=== PATIENT | male | born 1975 | race Caucasian/White ===

== ENCOUNTER 2023-12-19 04:32 | Inpatient (IN) ==
--- NOTE | 2023-12-19 04:54 | Emergency Department Note ---
History of Present Illness General Chief complaint: Abdominal Pain Stated complaint: HERNIA RUPTURE Time Seen by Provider: 12/19/23 04:45 History of Present Illness Maximum Pain Intensity: 10 This is a 48-year-old male presenting to the emergency department for evaluation of periumbilical abdominal pain. Patient states that he was moving a ladder of his truck, when he felt pain to the left lower side of his umbilicus. Patient believes that he may have a hernia in this area that has caused him difficulty in the past, and is worried it may be worse. He also has a history of kidney stones and is concerned it could be that as well. Patient's discomfort is a 10/10. He feels like he has been able to use the bathroom as normal. Home Medications Medication Instructions Recorded Confirmed Type No Known Home Medications 12/19/23 12/19/23 History Allergies Allergy/AdvReac Type Severity Reaction Status Date / Time No Known Allergies Allergy Verified 12/19/23 08:32 Past Med/Surg History Problem List (Updated 12/19/23 @ 21:25 by Kirit Peterson PA-C) Left ureteral stone (Acute) Medical History No chronic diseases present Surgical History No significant past surgical history Social History Smoking Status: Current every day smoker Tobacco Type: Cigarettes and Smokeless Tobacco (Dip or Chew) Second Hand Exposure: No; Do You Dip or Chew Tobacco: Yes; Hx Alcohol Use: Yes Hx Substance Use: No Preferred Language: Serbian Addictions Recovery Specialist Required: No Beliefs That Will Affect Care: None Current Living Situation: Alone Feels Safe at Home: Yes Assistive Devices: CPAP and Glasses Review of Systems A total of 10 systems reviewed and were otherwise negative Physical Exam Vital Signs Vital Signs - 24 hr 12/19/23 04:34 12/19/23 06:32 12/19/23 08:20 Temperature 36.5 C Temperature Source Temporal Artery Scan Pulse Rate 69 Pulse Rate [Apical] 58 L 89 Pulse Rhythm [Apical] Regular Pulse Strength [Apical] Normal Respiratory Rate 18 19 22 Respiratory Effort / Characteristics Non-Labored Spontaneous Non-Labored Spontaneous Respiratory Depth Normal Normal Respiratory Pattern Regular Blood Pressure 167/90 H Blood Pressure [Right Arm] 150/79 H 137/82 Blood Pressure Mean 115 Blood Pressure Mean [Right Arm] 102 100 Blood Pressure Position [Right Arm] Sitting Pulse Oximetry 96 100 99 Oxygen Delivery Method Room Air Room Air Room Air Sepsis Recent Fever Within 48 Hours No Sepsis New/Unexplained Change in Mental Status No Sepsis Action Taken by Nursing No Action Required VITALS: Vitals are noted on the nurse's note and reviewed by myself. Vital signs stable. GENERAL: Well-developed, well-nourished, white male, who is in no acute distress and resting comfortably. Patient is cooperative with the examination. HEAD: Normocephalic atraumatic. NECK: Supple without nuchal rigidity. No lymphadenopathy. No thyromegaly. Cervical spine is nontender. HEART: Regular rate and rhythm without murmurs gallops or rubs. LUNGS: Clear to auscultation bilaterally without wheezes, rales or rhonchi. No retractions or accessory muscle use. ABDOMEN: Positive normal bowel sounds x 4. Soft, with mild tenderness to the left side abdomen. No rebound or guarding. No CVA tenderness. MUSCULOSKELETAL: No muscle atrophy, erythema, or edema noted. Full range of motion in all extremities. Course Administered Medications Sodium Chloride (Nss) 1,000 mls @ 100 mls/hr IV .Q10H [facility] Stop: 01/18/24 08:29 Last Admin: 12/19/23 19:54 Dose: 100 mls/hr Documented By: Infusion: 12/19/23 18:35 Dose: Infused Documented By: Admin: 12/19/23 08:35 Dose: 100 mls/hr Documented By: NAM Morphine Sulfate (Morphine Sulfate 4 Mg/Ml 1 Ml Carp\Vial) 4 mg IV Q30M PRN PRN Reason: Pain Stop: 01/02/24 04:48 Last Admin: 12/19/23 05:00 Dose: 4 mg Documented By: ROD Tamsulosin HCl (Tamsulosin Hcl 0.4 Mg Cap) 0.4 mg PO QAM [facility] Stop: 01/18/24 08:59 Last Admin: 12/19/23 08:38 Dose: 0.4 mg Documented By: NAM Discontinued Medications Hydromorphone HCl (Hydromorphone Inj 0.5 Mg/0.5 Ml Syr) 0.5 mg IV NOW STA Stop: 12/19/23 05:33 Last Admin: 12/19/23 05:35 Dose: 0.5 mg Documented By: ROD Hydromorphone HCl (Hydromorphone Inj 0.5 Mg/0.5 Ml Syr) 0.5 mg IV NOW STA Stop: 12/19/23 08:08 Last Admin: 12/19/23 08:26 Dose: 0.5 mg Documented By: NAM Sodium Chloride (Nss) 1,000 mls @ 999 mls/hr IV .Q1H1M [facility] Stop: 12/19/23 06:00 Last Infusion: 12/19/23 06:06 Dose: Infused Documented By: Admin: 12/19/23 05:01 Dose: 999 mls/hr Documented By: ROD Promethazine HCl (Phenergan) 12.5 mg in 50.5 mls @ 202 mls/hr IV NOW STA Stop: 12/19/23 06:23 Last Infusion: 12/19/23 06:30 Dose: Infused Documented By: Admin: 12/19/23 06:14 Dose: 202 mls/hr Documented By: ROD Sodium Chloride (Nss) 1,000 mls @ 999 mls/hr IV .Q1H1M [facility]EL[facility] Stop: 12/19/23 07:15 Last Infusion: 12/19/23 08:31 Dose: Infused Documented By: Admin: 12/19/23 06:57 Dose: 999 mls/hr Documented By: ROD Ioversol (Optiray 320 100ml) 93 ml IV ONCE ONE Stop: 12/19/23 06:08 Last Admin: 12/19/23 06:07 Dose: 93 ml Documented By: VIKTOR Ketorolac Tromethamine (Ketorolac 30 Mg/Ml Vial) 30 mg IV NOW STA Stop: 12/19/23 06:12 Last Admin: 12/19/23 06:14 Dose: 30 mg Documented By: ROD Ondansetron HCl (Ondansetron Inj 2 Mg/Ml 2 Ml Vial) 4 mg IV NOW STA Stop: 12/19/23 04:50 Last Admin: 12/19/23 05:01 Dose: 4 mg Documented By: ROD Medical Decision Making Differential Diagnosis Differential diagnosis: Etiologies such as biliary colic, cholecystitis, hepatitis, pancreatitis, cardiac disease, pancreatitis, gastritis, peptic ulcer disease, appendicitis, cystitis, diverticulitis, mesenteric ischemia, inflammatory bowel disease, ileus, bowel obstruction, testicular/adnexal torsion, aortic pathology, shingles, as well as others were considered Laboratory Data 12/19/23 05:05 12/19/23 05:05 Lab Results 12/19/23 12/19/23 Range/Units 05:05 06:08 WBC 7.55 (4.8-10.8) K/ul RBC 5.05 (4.70-6.10) M/uL Hgb 15.5 (14.0-18.0) g/dl Hct 45.3 (42.0-52.0) % MCV 89.7 (80.0-100.0) fL MCH 30.7 (25.0-34.0) pg MCHC 34.2 (32.0-36.0) g/dL RDW Std Deviation 41.9 (36.4-46.3) fL RDW Coeff of Stephane 12.8 (11.5-14.5) % Plt Count 355 (130-400) K/uL MPV 8.9 L (9.4-12.4) fL Immature Gran % (Auto) 0.4 % Neut % (Auto) 71.6 % Lymph % (Auto) 17.5 % [place] % (Auto) 8.9 % Eos % (Auto) 1.2 % Baso % (Auto) 0.4 % Neut # (Auto) 5.41 (1.40-6.50) K/uL Lymph # (Auto) 1.32 (1.20-3.40) K/uL [place] # (Auto) 0.67 H (0.11-0.59) K/uL Eos # (Auto) 0.09 (0.00-0.50) K/uL Baso # (Auto) 0.03 (0.00-0.20) K/uL Immature Gran # (Auto) 0.03 (0.01-0.20) K/uL Sodium 137 (136-145) mmol/L Potassium 4.1 (3.5-5.1) mmol/L Chloride 104 (98-107) mmol/L Carbon Dioxide 25 (21-32) mmol/L Anion Gap 8 (3-11) BUN 14 (6-23) mg/dl Creatinine 1.13 (0.6-1.4) mg/dl Est Cr Clr Drug Dosing 85.1 ml/min Est GFR ( Amer) 88.6 ml/min Est GFR (Non-Af Amer) 76.4 ml/min BUN/Creatinine Ratio 12.4 (10-20) Glucose 120 H (70-99(Fasting)) mg/dl Calcium 9.5 (8.6-10.3) mg/dl Total Bilirubin 0.6 (0.2-1.0) mg/dl AST 12 L (13-39) U/L ALT 11 (7-52) U/L Alkaline Phosphatase 40 (34-104) U/L Total Protein 7.5 (6.0-8.3) gm/dl Albumin 4.4 (3.4-5.0) gm/dl Globulin 3.1 (2.5-4.0) gm/dl Albumin/Globulin Ratio 1.4 (0.9-2) Lipase 24 (11-82) U/L Urine Color Yellow Urine Appearance Clear (Clear) Urine pH 7.0 (4.5-7.5) Ur Specific [place] 1.038 H (1.000-1.030) Urine Protein Trace H (Negative) Urine Glucose (UA) Negative (Negative) Urine Ketones Trace H (Negative) Urine Blood 2+ H (Negative) Urine Nitrite Negative (Negative) Urine Bilirubin Negative (Negative) Urine Urobilinogen Negative (Negative) Ur Leukocyte Esterase Trace H (Negative) Urine WBC (Auto) 0-5 (0-5) /hpf Urine RBC (Auto) 11-20 H (0-2) /hpf U Hyaline Cast (Auto) 0-2 (0-2) /lpf U Epithel Cells (Auto) 0-2 (0-2) /hpf Urine Bacteria (Auto) None Seen (None Seen) MDM Narrative Physical exam and history were performed. Nursing notes, EMR, and Medication List were personally reviewed. No social concerns were identified as barriers to patients care. Patient appears to have abdominal pain on the left side bringing him to the ER. He is concerned about a hernia that he knows this. IV access was established and labs were obtained. Patient was hydrated normal saline and given IV morphine and IV Zofran. He was sent to CT scan for imaging. Patient's blood work is as above and was reviewed. He does not have a significantly elevated white blood cell count, gross anemia, bandemia, or significant electrolyte imbalance. Transaminases are not diagnostic. Urine with blood but no evidence of infection. Patient continued to have significant discomfort with vomiting despite IV treatment. I did provide him IV Dilaudid and IV Phenergan. He is also given IV Toradol. CT scan was reviewed by myself and likely shows a distal ureteral calculi with hydronephrosis. Official radiology read is pending. Patient remained in stable condition until the time of shift change. Case was discussed with my colleague, Edy Mejia PA-C, who will assume care pending official radiology read. Please see Mr. Mejia's dictation for further patient course, plan, and disposition. The chart was completed utilizing [employer] Voice Recognition Software. Grammatical errors, random word insertions, pronoun errors, and incomplete sentences are an occasional consequence of this system due to software limitations, ambient noise, and hardware issues. Any formal questions or concerns about the content, text, or information contained within the body of this dictation should be directly addressed to the provider for clarification. Impression & Plan Left ureteral stone Discharge Plan Visit Data Chief Complaint: Abdominal Pain Stated Complaint: HERNIA RUPTURE ED Provider: Stefano Wells ED Midlevel Provider: Edy Mejia Discharge Problem: Left ureteral stone Patient Disposition: Admitted As Inpatient Discharge Instructions Interventions: ED Discharge Assessment Last Done: 12/19/23 11:55
[2023-12-19] MEDS: MoRPHine SULFATE 4 MG/ML 1 ML CARP\\VIAL IV PRN (05:00)
[2023-12-19] MEDS: ONDANSETRON INJ 2 MG/ML 2 ML VIAL IV STA (05:01)
[2023-12-19] MEDS: SODIUM CHLORIDE 0.9% 1,000 ML IV SCH ×3 (05:01→08:35)
[2023-12-19 05:22] LABS: Basophils # (auto) 0.03 K/uL (0.00-0.20); Basophils % (auto) 0.4 %; Eosinophils # (auto) 0.09 K/uL (0.00-0.50); Eosinophils % (auto) 1.2 %; Hematocrit (blood only) 45.3 % (42.0-52.0); Hemoglobin 15.5 g/dl (14.0-18.0); Immature Granulocytes # (auto) 0.03 K/uL (0.01-0.20); Immature Granulocytes % (auto) 0.4 %; Lymphocytes # (auto) 1.32 K/uL (1.20-3.40); Lymphocytes % (auto) 17.5 %; Mean Corpuscular Hemoglobin 30.7 pg (25.0-34.0); Mean Corpuscular Hgb Conc 34.2 g/dL (32.0-36.0); Mean Corpuscular Volume 89.7 fL (80.0-100.0); Mean Platelet Volume 8.9 fL (9.4-12.4); Monocytes # (auto) 0.67 K/uL (0.11-0.59); Monocytes % (auto) 8.9 %; Neutrophils # (auto) 5.41 K/uL (1.40-6.50); Neutrophils % (auto) 71.6 %; Platelet Count 355 K/uL (130-400); RDW Coefficient of Variation 12.8 % (11.5-14.5); RDW Standard Deviation 41.9 fL (36.4-46.3); Red Blood Count 5.05 M/uL (4.70-6.10); White Blood Count 7.55 K/ul (4.8-10.8)
[2023-12-19] MEDS: HYDROmorphone INJ 0.5 MG/0.5 ML SYR IV STA ×2 (05:35→08:26)
[2023-12-19 05:37] LABS: Albumin Globulin Ratio 1.4 (0.9-2); Albumin Level 4.4 gm/dl (3.4-5.0); BUN Creatinine Ratio 12.4 (10-20); Bilirubin,Total 0.6 mg/dl (0.2-1.0); Calcium 9.5 mg/dl (8.6-10.3); Creatinine Clr Calc Pharmacy 85.1 ml/min; Est GFR (African American) 88.6 ml/min; Est GFR (Non-African American) 76.4 ml/min; Globulin 3.1 gm/dl (2.5-4.0); Potassium 4.1 mmol/L (3.5-5.1); Total Protein 7.5 gm/dl (6.0-8.3)
[2023-12-19] MEDS: OPTIRAY 320 100ml IV ONE (06:07)
[2023-12-19] MEDS: KETOROLAC 30 MG/ML VIAL IV STA (06:14)
[2023-12-19] MEDS: PROMETHAZINE 12.5 MG/50.5 ML BAG IV STA (06:14)
[2023-12-19 06:33] LABS: Appearance Urine Clear (Clear); Bacteria Urine Automated None Seen (None Seen); Bilirubin Urine Negative (Negative); Blood Urine 2+ (Negative); Cast Urine Automated 0-2 /lpf (0-2); Color Urine Yellow; Epithelial Cell Urine Auto 0-2 /hpf (0-2); Glucose Urine UA Negative (Negative); Ketones Urine Trace (Negative); Leukocyte Esterase Urine Trace (Negative); Nitrite Urine Negative (Negative); Protein Urine Trace (Negative); Specific Gravity Urine 1.038 (1.000-1.030); Urobilinogen Urine Negative (Negative); WBC Urine Automated 0-5 /hpf (0-5)
--- NOTE | 2023-12-19 07:26 | CT Scan Report ---
CT OF THE ABDOMEN AND PELVIS WITH CONTRAST CLINICAL HISTORY: periumbilical pain. ?Hernia vs other COMPARISON STUDY: CT of the abdomen and pelvis October 31, 2020. TECHNIQUE: Following IV administration of 93 mL of Optiray, axial images of the abdomen and pelvis we re obtained from the lung bases to the proximal femurs. Images were reviewed in the axial, sagittal, and coronal planes. IV contrast was administered without complication. Automated exposure control wa s utilized for the study. A dose lowering technique was utilized adhering to the principles of ALARA . CT DOSE: 1411.31 mGy.cm FINDINGS: A 4 mm distal left ureteral calculus results in mild left hydroureteronephrosis with delaye d nephrogram. There is trace perinephric fluid. There is no right hydronephrosis. There is a 2 mm lef t renal calculus. The liver, spleen, adrenal glands and pancreas are unremarkable with the exception of small hepatic cysts. The appendix is normal. There is no evidence for a bowel obstruction. Colonic diverticulosis without evidence for acute diverticulitis. There are no fluid collections. Major vasc ulature is patent. IMPRESSION: 1. 4 mm distal left ureteral calculus results in mild hydroureteronephrosis with delayed nephrogram. 2. 2 mm left renal calculus. ACT 112: Negative or not required by law. Electronically signed by: Joni Campos M.D. 12/19/2023 7:24 AM
[2023-12-19] MEDS ORDERED: MAGNESIUM HYDROXIDE SUSP 30 ML UDC PO PRN (08:29)
[2023-12-19] MEDS ORDERED: ACETAMINOPHEN 325 MG TAB PO PRN (08:29)
[2023-12-19] MEDS ORDERED: POLYETHYLENE (MIRALAX) 17 GM PACK PO PRN (08:29)
[2023-12-19] MEDS ORDERED: ONDANSETRON INJ 2 MG/ML 2 ML VIAL IV PRN (08:29)
[2023-12-19] MEDS ORDERED: HYDROmorphone INJ 0.5 MG/0.5 ML SYR IV PRN (08:29)
[2023-12-19] MEDS ORDERED: MoRPHine SULFATE 2 MG/ML CARP IV PRN (08:29)
[2023-12-19] MEDS ORDERED: ALUMINUM/MAGNESIUM SUSP 30 ML UDC PO PRN (08:29)
[2023-12-19] MEDS: TAMSULOSIN HCL 0.4 MG CAP PO SCH (08:38)
--- NOTE | 2023-12-19 09:15 | Emergency Department Note ---
ED Visit Note Patient case signed out to me on 12/19/2023 at 0700 hrs. at shift change from Kirit Peterson PA-C. This was pending CT scan report being read by radiology. Please refer to documentation regarding the patient's stay up until point of signout. The patient is here with left lower quadrant region pain. CT scan did result and shows an obstructing distal left ureteral stone. Patient has had several antiemetics as well as analgesics here with continuation of pain. I discussed options with the patient. We will proceed with inpatient management. Case discussed with the hospitalist service. Please refer to further documentation regarding his stay. .CT OF THE ABDOMEN AND PELVIS WITH CONTRAST CLINICAL HISTORY: periumbilical pain. ?Hernia vs other COMPARISON STUDY: CT of the abdomen and pelvis October 31, 2020. TECHNIQUE: Following IV administration of 93 mL of Optiray, axial images of the abdomen and pelvis were obtained from the lung bases to the proximal femurs. Images were reviewed in the axial, sagittal, and coronal planes. IV contrast was administered without complication. Automated exposure control was utilized for the study. A dose lowering technique was utilized adhering to the principles of ALARA. CT DOSE: 1411.31 mGy.cm FINDINGS: A 4 mm distal left ureteral calculus results in mild left hydroureteronephrosis with delayed nephrogram. There is trace perinephric fluid. There is no right hydronephrosis. There is a 2 mm left renal calculus. The liver, spleen, adrenal glands and pancreas are unremarkable with the exception of small hepatic cysts. The appendix is normal. There is no evidence for a bowel obstruction. Colonic diverticulosis without evidence for acute diverticulitis. There are no fluid collections. Major vasculature is patent. IMPRESSION: 1. 4 mm distal left ureteral calculus results in mild hydroureteronephrosis with delayed nephrogram. 2. 2 mm left renal calculus.
--- NOTE | 2023-12-19 10:36 | Urology Consultation ---
Date of Consultation December 19, 2023 Assessment & Plan (1) Left ureteral stone: We reviewed the stone in the left ureter. It is small enough that I think he has a good chance of passing it spontaneously. We discussed medical expulsive therapy with pain control, tamsulosin, hydration. We discussed the alternative of cystoscopy, retrograde pyelogram and ureteral stent placement. We reviewed risks and benefits of surgical intervention including bleeding, infection, injury to urinary tract, need for additional procedures, anesthesia risks. He expressed understanding and for now would like to try to pass the stone spontaneously. We will hold off intervention for now. Would recommend pain control with Tylenol, ibuprofen, tamsulosin, can use Pyridium. Narcotics if needed for breakthrough pain. If pain can be controlled on oral medications, he could be discharged home with outpatient follow-up. Urology will follow along History of Present Illness Reason for Consultation: Ureterolithiasis History of Present Illness This is a 48-year-old male with history of nephrolithiasis who presented to the emergency department on 12/19/2023 with left-sided abdominal pain/flank pain. Workup in the ED was notable for normal WBC (7.55). Hemoglobin was 15.5. Creatinine was normal at 1.13. Urinalysis demonstrated 2+ blood, trace leukocyte esterase, negative nitrites and no bacteria were seen. A CT scan of the abdomen and pelvis was performed on 12/19/2023. I independently reviewed these images. Both kidneys are in normal position. There is a 2 mm nonobstructing stone in the left kidney. There is mild hydronephrosis and hydroureter on the left extending down to the level of the bladder where there is a 4 mm stone at the UVJ. His bladder appears grossly normal as does his prostate. No stones seen on the right side. Urology was consulted for nephrolithiasis. At the bedside, he is somewhat sleepy related to medications. He denies any fevers or chills. He reports having occasional nausea with the pain. Pain is better controlled at the moment but does still seem to come in waves. He has a history of stones that he has passed spontaneously. He has never required surgical intervention. Allergies Allergy/AdvReac Type Severity Reaction Status Date / Time No Known Allergies Allergy Verified 12/19/23 08:32 Home Medications Medication Instructions Recorded Confirmed Type No Known Home Medications 12/19/23 12/19/23 History Patient History Medical History No chronic diseases present Surgical History No significant past surgical history Social History Smoking Status: Current every day smoker Tobacco Type: Cigarettes Preferred Language: Croatian Feels Safe at Home: Yes Review of Systems Review of Systems: 12 point review of systems negative exce pt for otherwise indicated. Physical Exam Physical Exam: Uncomfortable appearing, resting in bed. Eyes: + anicteric sclerae; pupils not irregula r Respiratory: normal respiratory effort; no respiratory distress, does not use accessory muscles and no cough Cardiovascular: well perfused Gastrointestinal (Abdomen): Inspection/Auscultation: abdomen normal to inspection; abdomen not distended Musculoskeletal: Extremities: extremities normal to inspection Skin: normal turgor; no rashes and no lesions Neurologic: moves all extremities and awake Psychiatric: Orientation: alert and oriented x 3 Results & Data Vital Signs (Past 12 Hours) Vital Signs Temp Pulse Pulse Resp BP BP Pulse Ox 12/19/23 08:20 89 22 137/82 99 12/19/23 06:32 58 L 19 150/79 H 100 12/19/23 04:34 36.5 C 69 18 167/90 H 96 O2 Del Method 12/19/23 08:20 Room Air 12/19/23 06:32 Room Air 12/19/23 04:34 Room Air PG Care Time/CCT Total # of Minutes Spent Total Time Spent with Patient: Total time spent is greater than 50% in coordination of care (as documented) at patient's floor/unit and/or counseling patient: Coding Level of Care Code 40244 IN/OBS CONSULT LVL 4,60M Diagnoses Left ureteral stone N20.1
--- NOTE | 2023-12-19 11:05 | History & Physical Report ---
Date of Service December 19, 2023 Assessment & Plan (1) Left ureteral stone: Plan LLQ pain Left ureteral calculus associated mild hydroureteronephrosis Patient came in with severe left lower abdominal pain which he likens to his prior episodes of renal stone pain. Patient needed multiple IV pain medications in the ED and hence the decision to admit. Admitting CTAP with 4 mm distal left ureteral calculus resulting in mild hydroureteronephrosis. Patient's clinical symptoms and admitting UA negative for UTI. Monitor off antibiotic. Start tamsulosin, continue with IV fluid, pain medications as needed. Urology consult, appreciate recommendation. DVT prophylaxis: Heparin subcu Full code Admission and Anticipated Discharge Date Admission Date: December 19, 2023 History of Present Illness Chief Complaint: LLQ pain Primary Care Provider: NO PCP 48-year-old male with PMH of renal stone presented to the ED with left lower belly pain since Wednesday morning, describes it as " very painful" and and 10/10 when it started, currently 2/10 after pain medications. Denied radiation of the pain. He likens the pain to his renal stone episodes in the past. Patient denies any pain or burning while passing urine denies any increase in frequency of the urination. Patient reports some nausea and dry heaves, denies vomiting. Patient denies fever/sore throat/cough/chest pain/palpitati on/headache/dizziness. Patient reports quitting smoking 3 days ago, reports he has been smoking " couple of years" and " not so much" cigarettes a day. Denies alcohol use and recreational drug use. Patient denies any home medication, reports full code. Plan of care discussed with the patient in detail, he voiced understanding. Allergies Allergy/AdvReac Type Severity Reaction Status Date / Time No Known Allergies Allergy Verified 12/19/23 08:32 Home Medications Medication Instructions Recorded Confirmed Type No Known Home Medications 12/19/23 12/19/23 History Past Med/Surg History Problem List (Updated 12/19/23 @ 10:34 by Jose Ramirez MD) Left ureteral stone Medical History No chronic diseases present Surgical History No significant past surgical history Social History Smoking Status: Current every day smoker Tobacco Type: Cigarettes Preferred Language: Panamanian Feels Safe at Home: Yes Review of Systems Review of Systems: Negative otherwise mentioned in HPI. Physical Exam Physical Exam: GENERAL: Oriented x3. NAD, on RA. Drowsy likely secondary to pain meds HEENT: No pallor, no icterus. Pupils equal, round and reactive to light. Oral mucosa moist. NECK: No JVD, no neck masses. HEART: S1 and S2 heard. Regular rate and rhythm. No murmur, no gallop. RESPIRATORY SYSTEM: Normal AP diameter. No accessory muscle use. No wheezing, no crackles. ABDOMEN: Soft, bowel sounds present, nontender, no distention. CENTRAL NERVOUS SYSTEM: No facial droop. Speech is clear. Obeys simple commands. Moves extremities. EXTREMITIES: No edema, no erythema seen. Left CVA tenderness - Negative. Results & Data Results & Data Vital Signs (Past 12 Hours) Vital Signs Temp Pulse Pulse Resp BP BP Pulse Ox 12/19/23 10:50 50 L 16 153/110 H 99 12/19/23 10:35 52 L 12/19/23 08:20 89 22 137/82 99 12/19/23 06:32 58 L 19 150/79 H 100 12/19/23 04:34 36.5 C 69 18 167/90 H 96 O2 Del Method 12/19/23 10:50 Room Air 12/19/23 10:35 12/19/23 08:20 Room Air 12/19/23 06:32 Room Air 12/19/23 04:34 Room Air
[2023-12-19] MEDS ORDERED: hydrALAZINE HCL 25 MG TAB PO PRN (17:11)
[2023-12-20 07:33] VITALS: BP 139/79; RESP 16; TEMP 98.4; O2SAT 98
[2023-12-20 07:37] VITALS: PULSE 60
--- NOTE | 2023-12-20 08:57 | Urology Progress Note ---
Date of Service December 20, 2023 Assessment & Plan (1) Left ureteral stone: Plan: Follow-up of left distal ureteral stone Patient afebrile, hemodynamically stable Creatinine and WBC within normal limits yesterday, no new lab work at time of visit He is subjectively doing well, no episodes of flank pain overnight Denies known stone passage He would like to continue with trial of passage as previously discussed He can be discharged to home from perspective with Flomax and pain management when medically stable Continue to strain urine will sign offwill arrange outpatient follow-up with our service Admission and Anticipated Discharge Date Admission Date: December 19, 2023 Subjective Patient seen and examined at bedside this morning. He is awake and eating breakfast. No acute issues overnight. No episodes of flank pain. No pain at present. No known stone passage. Using strainer. Denies nausea, vomiting, fever or chills. Review of Systems Constitutional: as per Subjective / HPI Genitourinary: + as per Subjective / HPI Physical Exam Constitutional: well developed and well nourished; no acute distress Respiratory: normal respiratory effort; no respiratory distress and no labored breathing Gastrointestinal (Abdomen): Inspection/Auscultation: abdomen normal to inspection Musculoskeletal: Head/Neck/Chest: normocephalic Neurologic: moves all extremities and awake Psychiatric: Orientation: alert and oriented x 3 Results & Data Vital Signs (Past 12 Hours) Vital Signs Temp Pulse Resp BP Pulse Ox O2 Del Method 12/20/23 07:36 60 12/20/23 07:32 36.9 C 6 L 16 139/79 98 Room Air PG Care Time/CCT Total # of Minutes Spent Total Time Spent with Patient: Total time spent is greater than 50% in coordination of care (as documented) at patient's floor/unit and/or counseling patient: Coding Level of Care Code 64408 SUB INP/OBS CARE /25MIN Diagnoses Left ureteral stone N20.1
--- NOTE | 2023-12-20 11:48 | Discharge Summary ---
Date of Service December 20, 2023 Admission HPI Per Admitting Provider 48-year-old male with PMH of renal stone presented to the ED with left lower belly pain since Wednesday morning, describes it as " very painful" and and 10/10 when it started, currently 2/10 after pain medications. Denied radiation of the pain. He likens the pain to his renal stone episodes in the past. Patient denies any pain or burning while passing urine denies any increase in frequency of the urination. Patient reports some nausea and dry heaves, denies vomiting. Patient denies fever/sore throat/cough/chest pain/palpitation/headache/dizziness. Patient reports quitting smoking 3 days ago, reports he has been smoking " couple of years" and " not so much" cigarettes a day. Denies alcohol use and recreational drug use. Patient denies any home medication, reports full code. Plan of care discussed with the patient in detail, he voiced understanding. Admission Exam Per Admitting Provider GENERAL: Oriented x3. NAD, on RA. Drowsy likely secondary to pain meds HEENT: No pallor, no icterus. Pupils equal, round and reactive to light. Oral mucosa moist. NECK: No JVD, no neck masses. HEART: S1 and S2 heard. Regular rate and rhythm. No murmur, no gallop. RESPIRATORY SYSTEM: Normal AP diameter. No accessory muscle use. No wheezing, no crackles. ABDOMEN: Soft, bowel sounds present, nontender, no distention. CENTRAL NERVOUS SYSTEM: No facial droop. Speech is clear. Obeys simple commands. Moves extremities. EXTREMITIES: No edema, no erythema seen. Left CVA tenderness - Negative. Principal Diagnosis LLQ pain Left ureteral calculus associated mild hydroureteronephrosis Discharge Exam GENERAL: Oriented x3. NAD, on RA. alert. HEENT: No pallor, no icterus. Pupils equal, round and reactive to light. Oral mucosa moist. NECK: No JVD, no neck masses. HEART: S1 and S2 heard. Regular rate and rhythm. No murmur, no gallop. RESPIRATORY SYSTEM: Normal AP diameter. No accessory muscle use. No wheezing, no crackles. ABDOMEN: Soft, bowel sounds present, nontender, no distention. CENTRAL NERVOUS SYSTEM: No facial droop. Speech is clear. Obeys simple commands. Moves extremities. EXTREMITIES: No edema, no erythema seen. Left CVA tenderness - Negative. Discharge Data Allergies Allergy/AdvReac Type Severity Reaction Status Date / Time No Known Allergies Allergy Verified 12/19/23 08:32 Consultations 12/19/23 08:24 Consult Urology Routine ED Decision to Admit Stat Ordered Studies 12/19/23 04:49 CT abd pelvis IV con only Stat Hospital Course (1) Left ureteral stone: Plan 48-year-old male was managed for the following: LLQ pain Left ureteral calculus associated mild hydroureteronephrosis Patient came in with severe left lower abdominal pain which he likens to his prior episodes of renal stone pain. Patient needed multiple IV pain medications in the ED and hence the decision to admit. Admitting CTAP with 4 mm distal left ureteral calculus resulting in mild hydroureteronephrosis. Patient's clinical symptoms and admitting UA negative for UTI. Monitor off antibiotic. Pt's renal colic has Significantly improved. He is hemodynamically stable and would like to go home. Urology evaluated, will be discharging patient on tamsulosin. Patient advised to maintain adequate hydration and strain all urine. Patient to follow-up with urology in 2 to 4 weeks time upon discharge. DVT prophylaxis: Heparin subcu Full code Patient is being discharged home with following instruction at the point of discharge: Follow-up with your primary care physician within a week time and likely you will need labs CBC/CMP/magnesium/phosphorus. You were evaluated for left renal stone, you are recommended to maintain adequate hydration and continue with Flomax. Follow-up with urology in 2 to 4 weeks time upon discharge. Strain all your urine. You will be prescribed a few days worth of pain medication, if you have further pain or worsening pain, you will need further evaluation at your PCP office or urology office. Take your medications as prescribed. Please make sure that you are able to get your medications today by calling your pharmacy before you leave the hospital so that your treatment continuity is not broken. Home Health Attestation I certify that this patient is under my care and that I, or a physicians lpn medical assistant working with me, had a face to-face encounter that meets the [id number] encounter requirements with this patient. The encounter with the patient was in whole, or in part, for the following medical condition, which is the primary reason for home health care (list medical condition): I certify that, based on my findings, the following services are medically necessary home health services: My clinical findings support the need for the above services because: Further, I certify that my clinical findings support that this patient is homebound (i.e. absences from home require considerable and taxing effort and are for medical reasons or caodaism services or infrequently or of short duration when for other reasons) because: Certification for Home Health Services: Based on the above findings, I certify that this patient is confined to the home and needs intermittent mcc care, physical therapy and/or speech therapy or continues to need occupational therapy. The patient is under my care, and I have initiated the establishment of the plan of care. This patient will be followed by a physician who will periodically review the plan of care. Total Time Total Time Spent Total Time Spent (In Minutes): 40 Discharge Plan Discharge Items Patient Disposition: Home - Self-Care Reason For Visit: LLQ Pain Discharge Diagnosis: LLQ pain Left ureteral calculus associated mild hydroureteronephrosis Activity: Resume your previous activity Non-emergency contact: Primary Care Provider Call non-emergency contact if: you have any medication questions, your symptoms worsen, your pain is worsening and your temperature is above 101 Follow-up/Referrals: Shannan Sanchez CRNP [Nurse Practitioner] - (The Urology office will contact you for a follow up appointment.) PCP,NO [Primary Care Provider] - Diet: Regular Addtl Attending Provider Instructions: Follow-up with your primary care physician within a week time and likely you will need labs CBC/CMP/magnesium/phosphorus. You were evaluated for left renal stone, you are recommended to maintain adequate hydration and continue with Flomax. Follow-up with urology in 2 to 4 weeks time upon discharge. Strain all your urine. You will be prescribed a few days worth of pain medication, if you have further pain or worsening pain, you will need further evaluation at your PCP office or urology office. Take your medications as prescribed. Please make sure that you are able to get your medications today by calling your pharmacy before you leave the hospital so that your treatment continuity is not broken. Pending Studies at Discharge: No Stand-Alone Forms: My Actual Experience, Smoking Cessation Medications and DC Order Prescriptions: New tamsulosin 0.4 mg Capsule 0.4 mg PO QAM Qty: 30 0RF oxycodone 5 mg tablet 5 mg PO Q8H PRN (Reason: pain (scale score 7-10)) 3 Days Qty: 9 0RF Discharge Orders: Discharge Order (Routine); Ordered 12/20/23 Ordered By: David Ledezma Admission Data Admit Date/Time: 12/19/23 08:24 Attending Provider: David Ledezma Admit Provider: David Ledezma Primary Care Provider: PCP,NO Other Providers: Jose Ramirez; David Ledezma
== END 2023-12-20 13:09 | disposition home or self-care (01) | DRG 694 ==
LOC: ED 04:32 → EDINP 08:24 → 3E 11:55

== ENCOUNTER 2023-12-22 21:50 | Inpatient (IN) ==
--- NOTE | 2023-12-22 22:53 | Emergency Department Note ---
History of Present Illness General Chief complaint: Kidney Stone Stated complaint: KIDNEY STONE, PAIN Time Seen by Provider: 12/22/23 22:29 History of Present Illness Maximum Pain Intensity: 8 This is a 48-year-old male presenting to the emergency department from home for evaluation of continued left-sided flank pain. The patient was seen and evaluated by myself a few days ago in this department where CT scan did show a distal left ureteral calculi. Patient was admitted at that visit and evaluated by urology. After discussion with urology, patient elected to try home care, and evidently has not been doing well at home. He continues with significant waves of pain that he rates an 8/10. The patient is not able to control the pain with his at home oxycodone and other analgesics. He has not had fevers or chills. No chest pain. He is still making urine. Home Medications Medication Instructions Recorded Confirmed Type oxycodone 5 mg tablet 5 mg PO Q8H PRN pain (scale score 12/20/23 12/22/23 Rx 7-10) 3 days #9 tabs tamsulosin 0.4 mg capsule 0.4 mg PO QAM #30 caps 12/20/23 12/22/23 Rx Allergies Allergy/AdvReac Type Severity Reaction Status Date / Time losartan AdvReac Mild weakness Verified 12/23/23 01:07 as per px Past Med/Surg History Problem List (Updated 12/23/23 @ 03:00 by Kirit Peterson PA-C) Renal colic on left side (Acute) Left ureteral stone (Acute) Medical History No chronic diseases present Surgical History No significant past surgical history Social History Smoking Status: Current every day smoker Tobacco Type: Cigarettes and Smokeless Tobacco (Dip or Chew) Second Hand Exposure: No; Do You Dip or Chew Tobacco: Yes; Hx Alcohol Use: No Hx Substance Use: No Preferred Language: Irish Lining Closer Required: No Beliefs That Will Affect Care: None Current Living Situation: Alone Feels Safe at Home: Yes Assistive Devices: CPAP and Glasses Review of Systems A total of 10 systems reviewed and were otherwise negative Physical Exam Vital Signs Vital Signs - 24 hr 12/22/23 21:52 12/22/23 22:06 Temperature 36.7 C Temperature Source Temporal Artery Scan Pulse Rate 78 Pulse Rate [Finger] 67 Respiratory Rate 16 22 Blood Pressure 180/104 H Blood Pressure [Right Arm] 173/93 H Blood Pressure Mean 129 Blood Pressure Mean [Right Arm] 119 Pulse Oximetry 99 98 Oxygen Delivery Method Room Air Sepsis Recent Fever Within 48 Hours No Sepsis New/Unexplained Change in Mental Status No Sepsis Action Taken by Nursing No Action Required VITALS: Vitals are noted on the nurse's note and reviewed by myself. Vital signs stable. GENERAL: Well-developed, well-nourished, white male, who is moderately uncomfortable appearing on presentation. HEAD: Normocephalic atraumatic. HEART: Regular rate and rhythm without murmurs gallops or rubs. LUNGS: Clear to auscultation bilaterally without wheezes, rales or rhonchi. No retractions or accessory muscle use. ABDOMEN: Positive normal bowel sounds x 4. Soft, nontender, without masses or organomegaly. No guarding or rebound tenderness. MUSCULOSKELETAL: No muscle atrophy, erythema, or edema noted. Full range of motion in all extremities. Course Administered Medications Potassium Chloride/Dextrose/Sod Cl (D5nss + 20meq Kcl) 20 meq in 1,000 mls @ 75 mls/hr IV .[id number] ONE Stop: 12/23/23 14:25 Last Admin: 12/23/23 01:57 Dose: 75 mls/hr Documented By: MLM Senna/Docusate Sodium (Docusate Sodium/Senna 50/8.6mg Tab) 1 tab PO QAM MARCELA Stop: 01/21/24 23:24 Last Admin: 12/22/23 23:36 Dose: 1 tab Documented By: JORDIN Discontinued Medications Amlodipine Besylate (Amlodipine Besylate 5 Mg Tab) 2.5 mg PO NOW ONE Stop: 12/22/23 23:16 Last Admin: 12/22/23 23:36 Dose: 2.5 mg Documented By: JORDIN Clonidine HCl (Clonidine Hcl 0.1 Mg Tab) 0.1 mg PO NOW ONE Stop: 12/22/23 23:01 Last Admin: 12/22/23 23:31 Dose: Not Given Documented By: JORDIN Hydromorphone HCl (Hydromorphone Inj 1 Mg/Ml Syringe) 1 mg IV NOW STA Stop: 12/22/23 22:45 Last Admin: 12/22/23 22:55 Dose: 1 mg Documented By: SOHA Sodium Chloride (Nss) 1,000 mls @ 999 mls/hr IV .Q1H1M MARCELA Stop: 12/22/23 23:45 Last Infusion: 12/22/23 23:47 Dose: Infused Documented By: Admin: 12/22/23 22:56 Dose: 999 mls/hr Documented By: SOHA Ketorolac Tromethamine (Ketorolac 30 Mg/Ml Vial) 30 mg IV NOW STA Stop: 12/22/23 22:45 Last Admin: 12/22/23 22:55 Dose: 30 mg Documented By: SOHA Ondansetron HCl (Ondansetron Inj 2 Mg/Ml 2 Ml Vial) 4 mg IV NOW STA Stop: 12/22/23 22:45 Last Admin: 12/22/23 22:55 Dose: 4 mg Documented By: SOHA Polyethylene Glycol (Polyethylene (Miralax) 17 Gm Pack) 17 gm PO NOW STA Stop: 12/22/23 23:24 Last Admin: 12/22/23 23:36 Dose: 17 gm Documented By: JORDIN Potassium Chloride (Potassium Chloride Crtab 20 Meq Tabcr) 40 meq PO NOW STA Stop: 12/23/23 01:06 Last Admin: 12/23/23 01:58 Dose: 40 meq Documented By: SHAREE Medical Decision Making Differential Diagnosis Differential diagnosis: Etiologies such as shingles, pyelonephritis/UTI, renal colic, appendicitis, diverticulitis, mesenteric ischemia, torsion, aortic pathology, infections, inflammatory bowel disease, bowel obstruction, PUD, biliary pathology, as well as others were entertained. Laboratory Data 12/22/23 22:49 12/22/23 22:49 Lab Results 12/22/23 Range/Units 22:49 WBC 8.27 (4.8-10.8) K/ul RBC 4.47 L (4.70-6.10) M/uL Hgb 13.8 L (14.0-18.0) g/dl Hct 40.9 L (42.0-52.0) % MCV 91.5 (80.0-100.0) fL MCH 30.9 (25.0-34.0) pg MCHC 33.7 (32.0-36.0) g/dL RDW Std Deviation 42.8 (36.4-46.3) fL RDW Coeff of Stephane 13.0 (11.5-14.5) % Plt Count 318 (130-400) K/uL MPV 9.1 L (9.4-12.4) fL Immature Gran % (Auto) 0.4 % Neut % (Auto) 70.7 % Lymph % (Auto) 17.8 % [place] % (Auto) 9.7 % Eos % (Auto) 1.0 % Baso % (Auto) 0.4 % Neut # (Auto) 5.86 (1.40-6.50) K/uL Lymph # (Auto) 1.47 (1.20-3.40) K/uL [place] # (Auto) 0.80 H (0.11-0.59) K/uL Eos # (Auto) 0.08 (0.00-0.50) K/uL Baso # (Auto) 0.03 (0.00-0.20) K/uL Immature Gran # (Auto) 0.03 (0.01-0.20) K/uL Sodium 138 (136-145) mmol/L Potassium 3.1 L (3.5-5.1) mmol/L Chloride 102 (98-107) mmol/L Carbon Dioxide 27 (21-32) mmol/L Anion Gap 9 (3-11) BUN 16 (6-23) mg/dl Creatinine 1.36 (0.6-1.4) mg/dl Est Cr Clr Drug Dosing 72.9 ml/min Est GFR ( Amer) 70.8 ml/min Est GFR (Non-Af Amer) 61.1 ml/min BUN/Creatinine Ratio 11.8 (10-20) Glucose 99 (70-99(Fasting)) mg/dl Calcium 9.5 (8.6-10.3) mg/dl Total Bilirubin 0.8 (0.2-1.0) mg/dl AST 13 (13-39) U/L ALT 10 (7-52) U/L Alkaline Phosphatase 38 (34-104) U/L Total Protein 6.9 (6.0-8.3) gm/dl Albumin 4.1 (3.4-5.0) gm/dl Globulin 2.8 (2.5-4.0) gm/dl Albumin/Globulin Ratio 1.5 (0.9-2) MDM Narrative Physical exam and history were performed. Nursing notes, EMR, and Medication List were personally reviewed. No social concerns were identified as barriers to patients care. Patient appears to have continued left-sided flank pain. Patient is not tolerating this pain well at home despite opioid analgesics. IV access was established and labs were obtained. Patient was hydrated normal saline and given IV Toradol, IV Dilaudid, and IV Zofran. Patient's blood work is as above and was reviewed. He does not have a significantly elevated white blood cell count, gross anemia, bandemia, or significant electrolyte imbalance. Transaminases are not diagnostic. Overall the patient does not appear well for discharge. He is failing home treatment. I did discuss the case with the on-call hospitalist, who agreed to evaluate the patient here in the ER. Please see their dictation for further patient course, plan, disposition. The chart was completed utilizing [employer] Speech Voice Recognition Software. Grammatical errors, random word insertions, pronoun errors, and incomplete sentences are an occasional consequence of this system due to software limitations, ambient noise, and hardware issues. Any formal questions or concerns about the content, text, or information contained within the body of this dictation should be directly addressed to the provider for clarification. Impression & Plan Renal colic on left side, Left ureteral stone Discharge Plan Visit Data Chief Complaint: Kidney Stone Stated Complaint: KIDNEY STONE, PAIN ED Provider: Stefano Wells ED Midlevel Provider: Kirit Peterson Discharge Problem: Renal colic on left side, Left ureteral stone Patient Disposition: Admitted As Inpatient Discharge Instructions Interventions: ED Discharge Assessment Last Done: 12/22/23 23:48
[2023-12-22] MEDS: KETOROLAC 30 MG/ML VIAL IV STA (22:55)
[2023-12-22] MEDS: HYDROmorphone INJ 1 MG/ML SYRINGE IV STA (22:55)
[2023-12-22] MEDS: ONDANSETRON INJ 2 MG/ML 2 ML VIAL IV STA (22:55)
[2023-12-22] MEDS: SODIUM CHLORIDE 0.9% 1,000 ML IV SCH (22:56)
[2023-12-22 23:21] LABS: Basophils # (auto) 0.03 K/uL (0.00-0.20); Basophils % (auto) 0.4 %; Eosinophils # (auto) 0.08 K/uL (0.00-0.50); Hematocrit (blood only) 40.9 % (42.0-52.0); Hemoglobin 13.8 g/dl (14.0-18.0); Immature Granulocytes # (auto) 0.03 K/uL (0.01-0.20); Immature Granulocytes % (auto) 0.4 %; Lymphocytes # (auto) 1.47 K/uL (1.20-3.40); Lymphocytes % (auto) 17.8 %; Mean Corpuscular Hemoglobin 30.9 pg (25.0-34.0); Mean Corpuscular Hgb Conc 33.7 g/dL (32.0-36.0); Mean Corpuscular Volume 91.5 fL (80.0-100.0); Mean Platelet Volume 9.1 fL (9.4-12.4); Monocytes % (auto) 9.7 %; Neutrophils # (auto) 5.86 K/uL (1.40-6.50); Neutrophils % (auto) 70.7 %; Platelet Count 318 K/uL (130-400); RDW Standard Deviation 42.8 fL (36.4-46.3); Red Blood Count 4.47 M/uL (4.70-6.10); White Blood Count 8.27 K/ul (4.8-10.8)
[2023-12-22] MEDS ORDERED: PROMETHAZINE 12.5 MG/50.5 ML BAG IV PRN (23:23)
[2023-12-22] MEDS ORDERED: LORazepam 0.5 MG TAB PO PRN (23:23)
[2023-12-22] MEDS ORDERED: oxyCODONE HCL IR 5 MG TAB (IMMEDIATE RELEASE) PO PRN (23:23)
[2023-12-22] MEDS ORDERED: MoRPHine SULFATE 4 MG/ML 1 ML CARP\\VIAL IV PRN (23:23)
[2023-12-22] MEDS: cloNIDine HCL 0.1 MG TAB PO ONE (23:31)
[2023-12-22] MEDS: amLODIPine BESYLATE 5 MG TAB PO ONE (23:36)
[2023-12-22] MEDS: POLYETHYLENE (MIRALAX) 17 GM PACK PO STA (23:36)
[2023-12-22] MEDS: DOCUSATE SODIUM/SENNA 50/8.6MG TAB PO SCH (23:36)
[2023-12-22 23:38] LABS: Albumin Globulin Ratio 1.5 (0.9-2); Albumin Level 4.1 gm/dl (3.4-5.0); BUN Creatinine Ratio 11.8 (10-20); Bilirubin,Total 0.8 mg/dl (0.2-1.0); Calcium 9.5 mg/dl (8.6-10.3); Creatinine Clr Calc Pharmacy 72.9 ml/min; Est GFR (African American) 70.8 ml/min; Est GFR (Non-African American) 61.1 ml/min; Globulin 2.8 gm/dl (2.5-4.0); Potassium 3.1 mmol/L (3.5-5.1); Total Protein 6.9 gm/dl (6.0-8.3)
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
[2023-12-23] MEDS: D5NSS + 20MEQ KCL 20 MEQ/1,000 ML BAG IV ONE (01:57)
[2023-12-23] MEDS: POTASSIUM CHLORIDE CRTAB 20 MEQ TABCR PO STA (01:58)
[2023-12-23 04:08] LABS: Magnesium 1.8 mg/dl (1.7-2.4)
--- NOTE | 2023-12-23 07:12 | XRay Report ---
XR KUB/Abdomen 1 view CLINICAL HISTORY: known kidney stone TECHNIQUE: 1 view of the abdomen was obtained. Comparison: Comparison is made to CT abdomen pelvis 12/17/2023 FINDINGS: No calcific densities are seen over the renal silhouettes. The osseous structures are grossly unremar kable. The bowel gas pattern is nonobstructive. A moderate amount of stool is noted within the large bowel. IMPRESSION: No radiographic evidence of nephrolithiasis. Of note, CT is more sensitive modality. ACT 112: Negative or not required by law. Electronically signed by: Ryan Page M.D. 12/23/2023 7:10 AM
--- NOTE | 2023-12-23 07:39 | Urology Consultation ---
<Statement entered by Jose Ramirez MD - 12/23/23 11:55> I have discussed Mr. Borden's case with ANGEL Vargas and agree with the above documentation. Will continue trial of medical expulsive therapy. We will monitor for stone passage. N.p.o. at midnight in case he requires intervention. -Jose Ramirez MD. Date of Consultation December 23, 2023 Assessment & Plan (1) Renal colic on left side: (2) Left ureteral stone: 48-year-old male recently hospitalized for left flank secondary to an obstructing 4 mm left distal ureteral stone. He was discharged to home for trial of passage and outpatient stone management on 12/20/23. He returned due to left renal colic. He is afebrile and hemodynamically stable Labs today reviewedcreatinine 1.43, no leukocytosis Urinalysis is not suspicious for infection Denies left flank pain at present He is straining urine, denies known stone passage Reviewed options for stone management including trial of passage versus surgical intervention with left ureteral stent placement while inpatient Discussed ureteral stents in detail, discussed need for stone treatment at a later date After discussion, he prefers to continue with observation/trial of passage Continue supportive care and pain management Recommend reassess for intervention tomorrow, make NPO at [facility] will follow History of Present Illness Attending Physician: David Ledezma MD History of Present Illness This is a 48-year-old male with history of nephrolithiasis who was recently hospitalized for left renal colic secondary to a 4 mm left distal ureteral stone. He elected for trial of passage and was discharged to home on 12/20/2023. He returned to the ER on 12/22/2023 with worsening left flank pain despite home medications. He was afebrile and hemodynamically stable in the ED. Lab work reviewed and showed creatinine of 1.36, WBC 8.27, hemoglobin 13.8. KUB personally reviewed and there is a small calcification noted in the left pelvis, which could be ureteral stone vs phlebolith. Urinalysis 12/23/2023 showed 1+ ketones, otherwise negative. He was admitted for pain management. Patient seen and examined at bedside this morning. He is awake and resting in bed. Reports pain is controlled now. Denies known stone passage. Urine is being strained. Denies nausea, vomiting, fever or chills. Voiding spontaneo usly without difficulty. He is currently NPO. Allergies Allergy/AdvReac Type Severity Reaction Status Date / Time losartan AdvReac Mild weakness Verified 12/23/23 01:07 as per px Home Medications Medication Instructions Recorded Confirmed Type oxycodone 5 mg tablet 5 mg PO Q8H PRN pain (scale score 12/20/23 12/22/23 Rx 7-10) 3 days #9 tabs tamsulosin 0.4 mg capsule 0.4 mg PO QAM #30 caps 12/20/23 12/22/23 Rx Patient History Medical History No chronic diseases present Surgical History No significant past surgical history Social History Smoking Status: Current every day smoker Tobacco Type: Cigarettes and Smokeless Tobacco (Dip or Chew) Second Hand Exposure: No; Do You Dip or Chew Tobacco: Yes; Hx Alcohol Use: No Hx Substance Use: No Preferred Language: Danish Managing Member Required: No Beliefs That Will Affect Care: None Current Living Situation: Alone Feels Safe at Home: Yes Assistive Devices: CPAP and Glasses Review of Systems Review of Systems: All systems reviewed & are unremarkable except as noted in HPI & below Physical Exam Constitutional: well developed and well nourished; no acute distress Respiratory: normal respiratory effort; no respiratory distress and no labored breathing Gastrointestinal (Abdomen): Inspection/Auscultation: abdomen normal to inspection Musculoskeletal: Head/Neck/Chest: normocephalic Neurologic: moves all extremities and awake Psychiatric: Orientation: alert and oriented x 3 Results & Data Vital Signs (Past 12 Hours) Vital Signs Temp Pulse Pulse Resp BP BP Pulse Ox 12/23/23 00:00 36.7 C 83 16 168/94 H 96 12/22/23 23:48 36.9 C 12/22/23 23:38 60 18 175/95 H 98 12/22/23 22:06 67 22 173/93 H 98 12/22/23 21:52 36.7 C 78 16 180/104 H 99 O2 Del Method 12/23/23 00:00 Room Air 12/22/23 23:48 Room Air 12/22/23 23:38 Room Air 12/22/23 22:06 Room Air 12/22/23 21:52 PG Care Time/CCT Total # of Minutes Spent Total Time Spent with Patient: Total time spent is greater than 50% in coordination of care (as documented) at patient's floor/unit and/or counseling patient: Coding Level of Care Code 51293 IN/OBS CONSULT LVL 3,45M Diagnoses Renal colic on left side N23 Left ureteral stone N20.1
--- OUTSIDE RECORDS SUMMARY | 2023-12-23 07:50 | External Medical Summary | Summary of Care ---
Author Name Unknown Organization [facility] Address [address] [place] [address] Phone [phone] Care Team Providers Care [employer] Inspector Name Role Phone Unavailable Primary Care Provider Unavailabl e Reason for Visit * Reason Onset Date Comments Hospital Follow-Up 12/21/2023 Nanda for [facility] Encounter Details Date Type Department Care Team (Late st Contact Info) Description 12/21/2023 Telephone Ancillary [address] [place] [phone] Debora Hampton, [facility] Hospital Follow-Up (Nanda for [facility]) Allergies No known active allergiesdocumented as of this encounter (statuses as of 12/21/2023) Medications Medication Sig Dispensed Refills Start Date End Date Status oxyCODONE HCl 5 MG Oral Tablet (Oxy IR) Take 1 Tablet by mouth every 8 hours as needed. 12/20/2023 Active Tamsulosin HCl 0.4 MG Oral Capsule (Flomax) Take 1 Capsule by mouth in the morning. 12/20/2023 Active documented as of this encounter (statuses as of 12/21/2023) Active Problems Problem Noted Date Diagnosed Date Gastroesophageal reflux disease without esophagi tis 05/05/2018 HTN, GOAL BELOW 140/90 02/01/2009 Overview: Modified per HTN Taxonomy. Calculus of kidney documented as of this encounter (statuses as of 12/21/2023) Resolved Problems Problem Noted Date Diagnosed Date Resolved Date FX UP TIBIA W FIBULA-CL 06/05/200404/30 HTN, goal below 140/90 02/01 Overview: Modified per HTN Taxonomy. documented as of this encounter (statuses as of 12/21/2023) Immunizations Name Administration Dates Next Due TDAP (age 10 and older)(Boostrix) 10/05/2010 TDAP, Age 7 and older, IM (Adacel) 07/28/2007 documented as of this encounter Social History Tobacco Use Types Packs/Day Years Used Date Smoking Tobacco: Former Cigarettes 1 3 0 03/29/1990 - 03/29/1993 Smokeless Tobacco: Former Chew Quit: 03/29/1993 Alcohol Use Standard Drinks/Week Comments No 0 (1 standard drink = 0.6 oz pur e alcohol) rare PHQ-2 Answer Date Recorded PHQ-2 Score 0 05/05/2018 Sex and Gender Information Value Date Recorded Sex Assigned at Not on file Gender Identity Not on file Sexual Orientation Not on file documented as of this encounter Miscellaneous Notes * Telephone Encounter - Debora Hampton RN - 12/21/2023 4:24 PM EDT Transitions of Care Note Reason for Referral:Recent Admission Phone visit for follow up: nanda Admitted to: [facility], Date: 12.19.23 Discharged to: home, Date: 12.20.23 Diagnosis driving hospitalization: Left ureteral calculus associated mild hydroureteronephrosis Source/Contact: Patient SUBJECTIVE Consent: Verbal consent for review of hospital discharge: Yes REVIEW OF SYSTEMS Patient/Other Reports: Current patient/caregiver problems or concerns: still trying to pass 2 stones CV: Denies problems Pulmonary: Denies problems Chills/Sweats/Fever:Denies chills/sweats Denies fever Appetite:Denies problems such as nausea, vomiting, burning, decreased appetite Current diet: reg Bowel: denies problems Bladder: denies problems, no blood or pain currently but when the pain does hit it is a 10 Wound (If applicable): N/A Pain:Denies Intensity- 0 (Scale 0-10) currently Sleep:Denies problems FUNCTIONAL STATUS: ADL'S: Needs Assistance With:N/A as pt is independent IADL'S: Needs Assistance With:N/A as pt is independent Cognitive and Mental Health: denies problems, alert and oriented x 3, and able to communicate, understand instructions, process information. MEDICATION RECONCILIATION Medications: Reports all medications taken as prescribed. New tamsulosin 0.4 mg Capsule 0.4 mg PO QAM Qty: 30 0RF oxycodone 5 mg tablet 5 mg PO Q8H PRN (Reason: pain (scale score 7-10)) 3 Days Qty: 9 0RF OBJECTIVE ASSESSMENT Medication Risk Assessment: No risks identified Did patient fail outpatient treatment? No Discharge instructions available for review? Yes PLAN Symptom Monitoring Interventions:Member/caregiver education - signs and symptoms to contact Primary[facility] (DO NOT DELETE-Three barrientos symptoms patient is to report to PCP) 1. Blood in urine 2. Urinary retention 3. Worsening pain Artist RepresentativeFrame Gate Mortiser Operator of Care interventions/Action Plan: 5 - 7 day follow-up with PCP in place - Date: 12.21.25 Educated on role of NANDA completed with patient/caregiver. Educated patient/caregiver on patient right to have input on NANDA plan of care. Verification of Home Health/DME if indicated: NO Identified Care Gaps: Yes Care Gaps closed this call: Transition of Care follow-up communication Re-evaluation of Plan of Care and progress towards goals achievement: Patient education this visit: Verbal, counseled patient to continue to strain urine and if he passing anything patient to bring it to the office tomorrow. Patient to stay hydrated. Plan to follow-up as previously scheduled, instructed to call Primary Care Provider with change in symptoms or as needed before next follow-up, verbalizes understanding and agrees with plan. Debora Hampton RN * Telephone Encounter - Perez Nye RN - 12/21/2023 1:12 PM EDT Discharge summary faxed to for review for hospital follow up appointment on 12/22/23.Thank you documented in this encounter Plan of Treatment Upcoming Encounters Date Type Department Care Team (Late st Contact Info) Description 12/22/2023 4:20 PM EDT Office Visit [address] [id number] Archana Quiñones MD [address] [place] [address] [place] [phone] Health Maintenance Due Date Last Done Comments HIV Screening 1990 Albumin/Creatinine Ratio 1993 Hepatitis C Screening 1993 Hepatitis B Vaccine (1 of 3 - 19+ 3-dose series) 1994 Depression Screening 05/05/2019 05/05/2018 GFR 05/05/2019 05/05/2018, 04/29, 03/31/2016, Additional history exists Cologuard 2020 Colonoscopy 2020 Colorectal Cancer Screening 2020 Fecal Occult Blood Test 2020 Sigmoidoscopy 2020 DTap/Tdap Vaccines (3 - Td or Tdap) 10/05/2020 10/05/2010, 07/28/2007 Lipid Panel 05/05/2023 05/05/2018, 07/28, 08/07/2010, Additional history exists COVID-19 Vaccine ( season) 2023 Influenza Vaccine (FLU shot) (#1) 2023 HPV (Gardasil) Vaccine Aged Out No lo nger eligible based on patient's age to complete this topic MENINGOCOCCAL (MENACTRA/MENVEO) Aged Out No longer eligible based on patient's age to complete this topic Pneumococcal Vaccine: Pediatrics (0 to 5 Years) and At-Risk Patients (6 to 64 Years) Aged Out No longer eligible based on patient's age to complete this topic documented as of this encounter Medical Devices Not on filedocumented as of this encounter
[2023-12-23 08:01] LABS: Basophils # (auto) 0.03 K/uL (0.00-0.20); Basophils % (auto) 0.4 %; Eosinophils # (auto) 0.11 K/uL (0.00-0.50); Eosinophils % (auto) 1.5 %; Hematocrit (blood only) 40.5 % (42.0-52.0); Hemoglobin 13.6 g/dl (14.0-18.0); Immature Granulocytes # (auto) 0.03 K/uL (0.01-0.20); Immature Granulocytes % (auto) 0.4 %; Lymphocytes # (auto) 1.28 K/uL (1.20-3.40); Lymphocytes % (auto) 17.8 %; Mean Corpuscular Hgb Conc 33.6 g/dL (32.0-36.0); Mean Corpuscular Volume 92.3 fL (80.0-100.0); Mean Platelet Volume 9.1 fL (9.4-12.4); Monocytes % (auto) 11.1 %; Neutrophils # (auto) 4.95 K/uL (1.40-6.50); Neutrophils % (auto) 68.8 %; Platelet Count 308 K/uL (130-400); RDW Coefficient of Variation 13.2 % (11.5-14.5); RDW Standard Deviation 44.4 fL (36.4-46.3); Red Blood Count 4.39 M/uL (4.70-6.10)
[2023-12-23 08:11] LABS: Appearance Urine Clear (Clear); Bilirubin Urine Negative (Negative); Blood Urine Negative (Negative); Color Urine Yellow; Glucose Urine UA Negative (Negative); Ketones Urine 1+ (Negative); Leukocyte Esterase Urine Negative (Negative); Nitrite Urine Negative (Negative); Protein Urine Negative (Negative); Specific Gravity Urine 1.025 (1.000-1.030); Urobilinogen Urine Negative (Negative)
[2023-12-23] MEDS: TAMSULOSIN HCL 0.4 MG CAP PO SCH (08:26)
[2023-12-23 09:46] LABS: Calcium 8.7 mg/dl (8.6-10.3); Potassium 3.8 mmol/L (3.5-5.1)
[2023-12-23 09:52] LABS: BUN Creatinine Ratio 11.2 (10-20); Creatinine Clr Calc Pharmacy 69.3 ml/min; Est GFR (African American) 66.6 ml/min; Est GFR (Non-African American) 57.5 ml/min
--- NOTE | 2023-12-23 11:25 | Hospitalist Progress Note ---
Date of Service December 23, 2023 Assessment & Plan (1) Left ureteral stone: Plan: Lt Obstructive uropathy/hydronephrosis: from recent confinement, c/i w/ worsening pain. No s/s of UTI and No sepsis for now. Continue Flomax, strain urine c/w pain Mx, ivf. UA neg for UTI. Uro on board, appreciate recs, NPO midnight. pt reports lt flank pain resolution. Monitor and replete electrolytes. Hypertension: Initiated amlodipine for BP control this admission, c/w same. elevated likely secondary to discomfort, continue to monitor. Patient previously on losartan for BP control years ago. He discontinued medication because it was making him feel weak. OLE on CPAP Narcotic induced constipation: c/w bowel regimen. past tobacco abuse DVT prophylaxis. SCDs Re: Hematuria Full code Text document was generated using [employer] voice recognition software. It may contain grammatical or spelling errors. Kindly contact undersigned for clarification of any documentation item in question. Admission and Anticipated Discharge Date Admission Date: December 22, 2023 Subjective Patient was seen and examined at bedside. Patient was lying in bed, on room air, NAD, resting comfortably. Patient reports improvement in his left flank pain, no pain currently, eating okay. Patient denies pain or burning while passing urine. Patient denies any febrile illness or flulike illness. Physical Exam Physical Exam: GENERAL: RA, NAD, no respiratory distress SKIN: Normal color, warm HEENT: Alopecia, faint hypopigmentation from skin graft on forehead, pink palpebral conjunctivae, no ptosis, moist buccal mucosa NECK : Supple, no tenderness CHEST : CTA, no tenderness HEART : RRR, no obvious murmurs ABDOMEN: Some distention, left lower quadrant tenderness - resolved. EXTREMITIES : No LE swelling/tenderness, no other conspicuous deformities noted NEUROLOGIC : Coherent, no facial asymmetry, no other gross focality Results & Data Results & Data Vital Signs (Past 12 Hours) Vital Signs Temp Pulse Pulse Resp BP BP Pulse Ox 12/23/23 07:42 36.4 C L 75 18 151/90 H 95 12/23/23 00:00 36.7 C 83 16 168/94 H 96 12/22/23 23:48 36.9 C 12/22/23 23:38 60 18 175/95 H 98 O2 Del Method 12/23/23 07:42 Room Air 12/23/23 00:00 Room Air 12/22/23 23:48 Room Air 12/22/23 23:38 Room Air
[2023-12-23] MEDS: LACTATED RINGER'S 1,000 ML IV SCH (15:17)
[2023-12-23 19:54] VITALS: RESP 16
[2023-12-23] MEDS: amLODIPine BESYLATE 5 MG TAB PO SCH (20:14)
[2023-12-24 08:06] VITALS: BP 150/86; PULSE 64; TEMP 97.7; O2SAT 97
--- NOTE | 2023-12-24 09:44 | Urology Progress Note ---
Date of Service December 24, 2023 Assessment & Plan (1) Renal colic on left side: (2) Left ureteral stone: Plan: Follow-up of left distal ureteral stone Patient afebrile, hemodynamically stable Labs reviewedcreatinine 1.43, no leukocytosis on 12/23/2023, no new labs yet today He is subjectively doing well, no episodes of flank pain since his arrival Denies known stone passage Discussed options for management and he prefers outpatient management He can be discharged to home from perspective with Flomax and prn pain management when medically stable Continue to strain urine We will arrange outpatient follow-up with our service with repeat imaging will sign off, contact our service with any additional questions or concerns Admission and Anticipated Discharge Date Admission Date: December 22, 2023 Subjective Patient seen and examined at bedside this morning. No acute issues overnight. He reports no recurrence of flank pain since his arrival. No nausea or vomiting. Voiding without difficulty. No fever or chills. Review of Systems Constitutional: as per Subjective / HPI Genitourinary: + as per Subjective / HPI Physical Exam Constitutional: well developed and well nourished; no acute distress Respiratory: normal respiratory effort; no respiratory distress and no labored breathing Gastrointestinal (Abdomen): Inspection/Auscultation: abdomen normal to inspection Musculoskeletal: Head/Neck/Chest: normocephalic Neurologic: moves all extremities and awake Psychiatric: Orientation: alert and oriented x 3 Results & Data Vital Signs (Past 12 Hours) Vital Signs Temp Pulse Resp BP Pulse Ox O2 Del Method 12/24/23 08:00 36.5 C 64 16 150/86 H 97 Room Air PG Care Time/CCT Total # of Minutes Spent Total Time Spent with Patient: Total time spent is greater than 50% in coordination of care (as documented) at patient's floor/unit and/or counseling patient: Coding Level of Care Code 10082 SUB INP/OBS CARE 04/22MIN Diagnoses Renal colic on left side N23 Left ureteral stone N20.1
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
[2023-12-24] MEDS: amLODIPine BESYLATE 5 MG TAB PO ONE (11:39)
== END 2023-12-24 13:01 | disposition home or self-care (01) | DRG 694 ==
LOC: ED 21:50 → 3N 23:22